=== PATIENT | female | born 1995 | race Two or more races ===

== ENCOUNTER 2023-10-05 12:27 | Emergency (ER) | payer MEDICAID, OTHER ==
[~2023-10-05] VITALS: Ht 170.2 cm; Wt 72.7 kg
[2023-10-05 12:45] VITALS: PULSE 76; RESP 16; TEMP 97.2; O2SAT 99
[2023-10-05] MEDS: SODIUM CHLORIDE 0.9% 1,000 ML IVB ONE ×2 (12:47→15:51)
[2023-10-05] MEDS: HYDROmorphone HCL 2 MG/ML VL/or syr IV ONE (12:55)
[2023-10-05] MEDS: ONDANSETRON HCL 4 MG/2 ML VIAL IV ONE (12:55)
[2023-10-05] MEDS: KETOROLAC TROMETH 30 MG/ML 1ML VIAL IV ONE (12:55)
[2023-10-05 13:45] LABS: Basophils # (auto) 0 10 ^3/uL (0-0.2); Basophils % (auto) 0.4 % (0.0-2.0); Eosinophils # (auto) 0.1 10 ^3/uL (0-0.8); Eosinophils % (auto) 0.9 % (0.0-7.0); Hematocrit 38.4 % (36.0-46.0); Hemoglobin 12.6 g/dL (12.2-16.2); Lymphocytes # (auto) 1.1 10 ^3/uL (0.4-5.4); Lymphocytes % (auto) 12.2 % (10.0-50.0); Mean Corpuscular Hemoglobin 30.2 pg (28.0-32.0); Mean Corpuscular Hgb Conc. 32.9 g/dL (32.0-36.0); Mean Corpuscular Volume 91.8 fL (80.0-100.0); Monocytes # (auto) 0.5 10 ^3/uL (0-1.3); Neutrophils # (auto) 7.4 10 ^3/uL (1.6-8.6); Neutrophils % (auto) 81.5 % (37.0-80.0); Red Blood Cells 4.18 10^6/uL (4.0-5.20); White Blood Cell 9.1 10^3/uL (4.4-10.8)
[2023-10-05 14:02] LABS: Albumin 4.2 g/dL (3.2-4.8); Alkaline Phosphatase 63 U/L (46-116); Anion Gap 6 (5-15); Aspartate Aminotransferase 21 U/L (13-40); BUN/Creatinine Ratio 8.8 (10.0-20.0); Blood Urea Nitrogen 5 mg/dL (9-23); Calcium 9.1 mg/dL (8.5-10.1); Carbon Dioxide 25 mmol/L (20-30); Chloride 109 mmol/L (98-107); Glucose 101 mg/dL (74-106); Potassium 4.1 mmol/L (3.5-5.1); Sodium 140 mmol/L (136-145)
[2023-10-05 14:03] LABS: Bilirubin, Total 0.6 mg/dL (0.2-1.0); Total Protein 6.8 g/dL (5.7-8.2)
[2023-10-05 14:04] LABS: Alanine Aminotransferase < 9 U/L (7-40)
[2023-10-05 14:35] LABS: Blood Alcohol < 3.0 mg/dL (<10)
[2023-10-05] MEDS: LORazepam 2MG/ML-1ML VIAL IV ONE (15:52)
[2023-10-05] MEDS: IOHEXOL 300 MG/ML 100ML BOTTLE IJ ONE (15:52)
[2023-10-05] MEDS: ACETAMINOPHEN 325 MG TAB PO ONE (15:52)
[2023-10-05 16:25] LABS: Urine Bacteria None Seen /hpf (None Seen)
[2023-10-05 16:43] LABS: Urine Blood Negative /uL (Negative); Urine Clarity Clear (Clear); Urine Color Colorless (Yellow); Urine Protein, UAD Negative (Negative); Urine Specific Gravity 1.005 (1.001-1.035); Urine Urobilinogen Normal (Negative); Urine WBC 1 /hpf (0 - 5); Urine pH 6.5 (5.0-9.0)
[2023-10-05 16:44] LABS: Amphetamine Screen, Urine Neg (NEGATIVE); Barbiturate Scree,Urine Neg (NEGATIVE); Benzodiazephine Screen, Urine Neg (NEGATIVE); Cocaine Screen, Urine Neg (NEGATIVE)
[2023-10-05 16:45] LABS: Cannabinoid Screen, Urine Pos (NEGATIVE); Opiate Scree,Urine Neg (NEGATIVE); Phencyclidine Screen, Urine Neg (NEGATIVE)
[2023-10-05 18:45] VITALS: BP 122/62; PULSE 77; RESP 16; O2SAT 98
[2023-10-05] MEDS ORDERED: CEPH250C PO (18:46)
[2023-10-05] MEDS ORDERED: IBU600T PO (18:46)
[2023-10-05] MEDS ORDERED: PANT40TA2 PO (18:46)
[2023-10-05] MEDS ORDERED: METO-281 PO (18:46)
[2023-10-05] MEDS: cefTRIAXone 1GM/50ML D5W 50 ML IV ONE (18:52)
[2023-10-06 13:14] LABS: Lipase 32 U/L (12-53)
[2023-10-06 13:15] LABS: Magnesium 1.6 mg/dL (1.6-2.6)
== END 2023-10-05 19:06 | disposition home or self-care (01) ==
LOC: ER 12:27 → EDBD 12:27 → ER 19:06
DX: N30.90 Cystitis, unspecified without hematuria (principal); R10.2 Pelvic and perineal pain; R51.9 Headache, unspecified; Z79.899 Other long term (current) drug therapy
CPT/HCPCS: 36415; 70450; 71045; 74177; 80053; 80307; 80320; 81001; 83605; 83690; 83735; 84484; 84702; 85025; 87086; 96361; 96374; 96375; 99285; J0696; J1885; J2405; J7030; Q9967